=== PATIENT | male | born 1985 | race American Indian/Alaskan Native ===

== ENCOUNTER 2017-12-10 12:35 | Emergency (ER) | payer SELFPAY ==
[2017-12-10 12:43] VITALS: BP 121/88
--- NOTE | 2017-12-10 13:41 | Emergency Department Report ---
Chief Complaint: Urogenital-Male Stated Complaint: PAIN WHEN URINATE Time Seen by Provider: 12/10/17 13:30 - HPI History of Present Illness: Mr. Haines presents with concern for STD. +dysuria. - Exam Vital Signs: Vital Signs 12/10/17 12:40 Temperature 98.2 F Pulse Rate 92 H Respiratory 18 Rate Blood Pressure 121/88 O2 Sat by Pulse 99 Oximetry MSE screening note: Focused history and physical exam performed. Due to findings the following was ordered: ED Medical Decision Making - Medical Decision Making Considering patient does not have a life or limb threatening emergency, he was referred to health department for STD testing and treatment. ED Disposition for MSE Clinical Impression: Dysuria Condition: Stable Instructions: Sexually Transmitted Diseases (ED) Referrals: [facility] [Outside] - 3-5 Days [facility] [Outside] - 3-5 Days
== END 2017-12-10 13:43 | disposition left against medical advice (07) ==
LOC: ED 12:35
DX: R30.0 Dysuria (principal)
CPT/HCPCS: 99282